=== PATIENT | male | born 1965 | race Hispanic/Latino ===

== ENCOUNTER 2019-02-20 12:09 | Outpatient (CLI) | payer BC ==
--- NOTE | 2019-02-20 12:55 | RAD ---
PA AND LATERAL CHEST XRAY: HISTORY: Chest pain. COMPARISON: 02/23/2005. FINDINGS: Cardiac silhouette and pulmonary vasculature are within normal limits. Lungs remain clear. There brumfield s been no interval change from prior exam. IMPRESSION: No acute cardiopulmonary process. POS: [facility]
== END 2019-02-20 12:10 | disposition home or self-care (01) ==
LOC: BICRAD 12:09
PROVIDERS: ATTEND Family Medicine
DX: R07.9 Chest pain, unspecified (principal)
CPT/HCPCS: 71046